=== PATIENT | female | born 1945 | race Two or more races ===

== ENCOUNTER 2023-03-09 17:47 | Emergency (ER) | payer OTHER ==
[~2023-03-09] VITALS: Ht 157.5 cm; Wt 63.5 kg
[2023-03-09] MEDS ORDERED: METFORMIN HCL500 M4 PO (18:01)
[2023-03-09] MEDS ORDERED: DIOVAN40 MG PO (18:02)
[2023-03-09] MEDS ORDERED: CRESTOR10 MG PO (18:03)
[2023-03-09] MEDS ORDERED: NORVASC10 MG PO (18:03)
[2023-03-09] MEDS ORDERED: ADULT LOW DOSE81 M1 PO (18:03)
[2023-03-09 20:10] LABS: HEMATOCRIT 46.3 % (36.0-45.00); HEMOGLOBIN 15.7 g/dL (12.0-15.00); MEAN CELL VOLUME 91.7 fL (80.00-100.00); MEAN CORPUSCULAR HEMOGLOBIN 31.1 pg (27.00-32.0); MEAN CORPUSCULAR HGB CONC 33.9 g/dl (32.0-36.0); PLATELET COUNT 216 K/uL (150-450); RED BLOOD COUNT 5.05 M/uL (4.00-6.00); RED CELL DISTRIBUTION WIDTH 13.3 % (11.5-14.5)
== END 2023-03-09 21:53 | disposition home or self-care (01) ==
LOC: ER 17:47
PROVIDERS: General Practice
DX: M67.979 Unspecified disorder of synovium and tendon, unspecified ankle and foot (principal); E11.9 Type 2 diabetes mellitus without complications; Z79.84 Long term (current) use of oral hypoglycemic drugs
CPT/HCPCS: 36415; 96372; 99283; J0696; J1885